=== PATIENT | female | born 1965 | race Caucasian/White ===

== ENCOUNTER 2023-05-02 18:04 | Emergency (ER) | payer OTHER ==
[~2023-05-02] VITALS: Ht 165.1 cm; Wt 57.2 kg
[2023-05-02] MEDS ORDERED: Metoclopramide Hydrochloride 10 MG/2 ML AMP IV ONE (18:35)
[2023-05-02] MEDS ORDERED: diphenhydrAMINE hydrochloride 50 MG/ML VIAL IV ONE (18:35)
[2023-05-02] MEDS ORDERED: Ketorolac Tromethamine 30 MG/ML VIAL IV ONE (18:35)
[2023-05-02] MEDS ORDERED: SODIUM CHLORIDE 0.9% 1,000 ML IV ONE (18:35)
[2023-05-02] MEDS ORDERED: Dexamethasone Sodium Phospha 20 MG/5 ML VIAL IV ONE (20:05)
== END 2023-05-02 20:22 | disposition home or self-care (01) ==
LOC: ED 18:04
DX: G43.909 Migraine, unspecified, not intractable, without status migrainosus (principal)